=== PATIENT | female | born 1995 | race Two or more races ===

== ENCOUNTER 2023-12-23 09:45 | Outpatient (CLI) | payer OTHER, SELFPAY | END 2023-12-23 09:46 | disposition home or self-care (01) | LOC: NFLDREF 12-27 02:01 | PROVIDERS: PCP Physician Assistant Medical; Referring Provider Physician Assistant Medical; Visit Provider Physician Assistant Medical | DX: Z13.228 Encounter for screening for other metabolic disorders (principal); Z13.220 Encounter for screening for lipoid disorders; Z13.29 Encounter for screening for other suspected endocrine disorder | CPT/HCPCS: 80053; 80061; 84443 ==

== ENCOUNTER 2024-12-08 13:13 | Outpatient (CLI) | payer OTHER, SELFPAY ==
[2024-12-10 02:19] LABS: HPV Source Cervical
[2024-12-10 12:03] LABS: HPV Genotype 16 by TMA Not Detected; HPV Genotype 18/45 by TMA Not Detected
[2024-12-20 15:48] LABS: Pap Test Digital Imaging Done; Pap Test Reviewed by Pathologi Done
== END 2024-12-08 13:14 | disposition home or self-care (01) ==
PROVIDERS: PCP Physician Assistant Medical; Visit Provider Physician Assistant Medical
DX: N87.0 Mild cervical dysplasia (principal); Z12.4 Encounter for screening for malignant neoplasm of cervix; Z11.51 Encounter for screening for human papillomavirus (HPV)
CPT/HCPCS: 87624; 87625; 88141; 88142; 88175